=== PATIENT | female | born 2000 | race Caucasian/White ===

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

== ENCOUNTER 2019-11-22 11:52 | Inpatient (IN) ==
[2019-11-22] MEDS ORDERED: OXYTOCIN 30 UNITS/500 ML BAG IV PRN ×2 (12:39→16:52)
--- NOTE | 2019-11-22 12:43 | Obstetrical Progress Note ---
Date of Service November 22, 2019 Subjective Admit Note 18 F P0000 at 39.1 weeks admitted in active labor. GBS is negative. Covid is negative. Cervix 6-7/90/-1/vertex/intact. FHT Cat 1. EFW 7-8 lbs. Will admit in labor and anticipate normal delivery. Results & Data ([facility]) Vital Signs (Past 12 Hours) Vital Signs Temp Pulse Resp BP 11/22/19 12:26 79 139/89 11/22/19 12:10 74 135/94 11/22/19 12:02 36.1 C L 69 20 136/93 11/22/19 11:55 69 136/93 11/22/19 11:53 36.1 C L 20
[2019-11-22 12:54] LABS: Hematocrit (blood only) 32.2 % (37-47); Hemoglobin 9.9 g/dL (12.0-16.0); Mean Corpuscular Hemoglobin 25.6 pg (25-34); Mean Corpuscular Volume 83.4 fL (80-100); Mean Platelet Volume 10.6 fL (7.4-10.4); Platelet Count 245 K/uL (130-400); RDW Coefficient of Variation 16.4 % (11.5-14.5); RDW Standard Deviation 49.4 fL (36.4-46.3); Red Blood Count 3.86 M/uL (4.2-5.4); White Blood Count 17.66 K/uL (4.8-10.8)
[2019-11-22 12:55] LABS: Mean Corpuscular Hgb Conc 30.7 g/dL (32-36)
[2019-11-22] MEDS: LACTATED RINGER'S 1,000 ML IV PRN ×2 (13:00→14:44)
[2019-11-22] MEDS ORDERED: BUTORPHANOL TARTRATE 1 MG/ML VIAL IV PRN (13:11)
--- NOTE | 2019-11-22 15:27 | Obstetrical Progress Note ---
Date of Service November 22, 2019 Assessment & Plan Admission and Anticipated Discharge Date Admission Date: November 22, 2019 Physical Exam Genitourinary: OB Exam Abdomen: + vertex Manual OB Exam: + cervical dilation 10 cm, + cervical effacement 100%, + station -1 and + amniotic fluid (AROM with Amni-hook) clear OB Exam Monitor Tracing: + external FHT monitor used and + external uterine monitor used Results & Data ([facility]) Vital Signs (Past 12 Hours) Vital Signs Temp Pulse Resp BP Pulse Ox 11/22/19 15:20 76 100 11/22/19 15:13 85 100 11/22/19 15:11 71 157/92 H 11/22/19 15:08 77 99 11/22/19 15:03 66 99 11/22/19 14:58 86 163/101 H 99 11/22/19 14:53 95 H 100 11/22/19 14:48 79 99 11/22/19 14:46 74 119/72 11/22/19 14:43 83 100 11/22/19 14:38 88 99 11/22/19 14:27 79 99 11/22/19 14:25 77 129/82 11/22/19 14:22 80 98 11/22/19 14:17 68 100 11/22/19 14:12 81 100 11/22/19 14:11 78 136/88 11/22/19 14:07 77 100 11/22/19 14:02 80 98 11/22/19 13:57 75 100 11/22/19 13:55 76 114/69 11/22/19 13:52 81 98 11/22/19 13:47 79 97 11/22/19 13:42 79 134/85 97 11/22/19 13:37 84 97 11/22/19 13:32 72 98 11/22/19 13:28 74 141/97 H 11/22/19 13:27 83 100 11/22/19 12:26 79 139/89 11/22/19 12:10 74 135/94 11/22/19 12:02 36.1 C L 69 20 136/93 11/22/19 11:55 69 136/93 11/22/19 11:53 36.1 C L 20
[2019-11-22 16:21] LABS: Amphetamines+Metham, Urine Neg (Neg); Barbiturates, Urine Neg (Neg); Benzodiazepine, Urine Neg (Neg); Cocaine, Urine Neg (Neg); MDMA (Ecstacy), Urine Neg (Neg); Methadone, Urine Neg (Neg); Opiate, Urine Neg (Neg); Phencyclidine, Urine Neg (Neg)
--- NOTE | 2019-11-22 16:41 | Delivery Summary ---
Vaginal Delivery Summary Date of Service November 22, 2019 Vaginal Delivery Summary Delivery Note live female over intact perineum with delayed cord clamping and Apgars 7/9 weight pending. Cord blood obtained followed by spontaneous delivery of intact placenta, No tears. EBL 200 ml. Final sponge and instrument count are correct. Mom and baby stable.
[2019-11-22] MEDS ORDERED: IBUPROFEN 600 MG TAB PO ONE (16:42)
[2019-11-22] MEDS ORDERED: BENZOCAINE 20% AER SPR 82.5 GM CAN EXT PRN (16:52)
[2019-11-22] MEDS ORDERED: bisacodyL 10 MG SUPP PR PRN (16:52)
[2019-11-22] MEDS ORDERED: DIPHTHERIA/TETANUS/PERTUSSIS 0.5 ML SYR/VIAL IM ONE (16:52)
[2019-11-22] MEDS ORDERED: IBUPROFEN 600 MG TAB PO PRN (16:52)
[2019-11-22] MEDS ORDERED: ACETAMINOPHEN 325 MG TAB PO PRN (16:52)
[2019-11-22] MEDS ORDERED: SUPERCREAM 0.870% 15 GM JAR EXT PRN (16:52)
[2019-11-22] MEDS ORDERED: HYDROCORTISONE ACETATE 25 MG SUPP PR PRN (16:52)
[2019-11-22] MEDS: DOCUSATE SODIUM 100 MG CAP PO SCH (21:16)
[2019-11-23 06:59] LABS: Hematocrit (blood only) 28.5 % (37-47); Hemoglobin 8.8 g/dL (12.0-16.0); Mean Corpuscular Hemoglobin 25.7 pg (25-34); Mean Corpuscular Hgb Conc 30.9 g/dL (32-36); Mean Corpuscular Volume 83.1 fL (80-100); Mean Platelet Volume 11.3 fL (7.4-10.4); Platelet Count 246 K/uL (130-400); RDW Coefficient of Variation 16.3 % (11.5-14.5); RDW Standard Deviation 49.2 fL (36.4-46.3); Red Blood Count 3.43 M/uL (4.2-5.4); White Blood Count 17.16 K/uL (4.8-10.8)
--- NOTE | 2019-11-23 07:36 | Obstetrical Progress Note ---
Date of Service November 23, 2019 Assessment & Plan Admission and Anticipated Discharge Date Admission Date: November 22, 2019 Subjective Patient is seen and examined. She feels well, no complaints. Ambulating without dizziness Voiding without difficulty Tolerating regular diet with out N&V Bleeding is minimal No fever/ chills/ CP/ SOB/ N&V/ Leg pain Breast feeding without problems Vital Signs Temp Pulse Pulse Pulse Resp BP BP 11/23/19 07:30 36.6 C 92 H 18 121/80 11/23/19 04:26 37.1 C 73 18 11/23/19 00:11 36.8 C 80 18 11/22/19 19:45 36.8 C 111 H 18 110/73 BP Pulse Ox 11/23/19 07:30 97 11/23/19 04:26 135/71 11/23/19 00:11 101/71 11/22/19 19:45 Lab Results 11/22/19 11/22/19 11/23/19 Range/Units 12:44 Unknown 06:32 WBC 17.66 H 17.16 H (4.8-10.8) K/uL RBC 3.86 L 3.43 L (4.2-5.4) M/uL Hgb 9.9 L 8.8 L (12.0-16.0) g/dL Hct 32.2 L 28.5 L (37-47) % MCV 83.4 83.1 (80-100) fL MCH 25.6 25.7 (25-34) pg MCHC 30.7 L 30.9 L (32-36) g/dL RDW Std Deviation 49.4 H 49.2 H (36.4-46.3) fL RDW Coeff of Zeina 16.4 H 16.3 H (11.5-14.5) % Plt Count 245 246 (130-400) K/uL MPV 10.6 H 11.3 H (7.4-10.4) fL Urine Opiates Screen Neg (Neg) Ur Methadone, Qual Neg (Neg) Urine Barbiturates Neg (Neg) Ur Phencyclidine (PCP) Neg (Neg) U Amphetamin/Meth Scrn Neg (Neg) MDMA (Ecstasy) Screen Neg (Neg) U Benzodiazepines Scrn Neg (Neg) Ur Cocaine Metabolite Neg (Neg) U Marijuana (THC) Screen Neg (Neg) PE: General: Alert, orientedx3, NAD Abd: soft, NT, fundus firm, below Umbilicus Perineum intact, Lochia rubra minimal Ext; NT, no edema AP: 18 yo s/p , ppd# 1 VSS Afebrile doing well Anemic asymptomatic, start iron bid Continue routine care All questions were answered D/C home tomorrow Results & Data ([facility]) Vital Signs (Past 12 Hours) Vital Signs Temp Pulse Pulse Pulse Resp BP BP 11/23/19 07:30 36.6 C 92 H 18 121/80 11/23/19 04:26 37.1 C 73 18 11/23/19 00:11 36.8 C 80 18 11/22/19 19:45 36.8 C 111 H 18 110/73 BP Pulse Ox 11/23/19 07:30 97 11/23/19 04:26 135/71 11/23/19 00:11 101/71 11/22/19 19:45
[2019-11-23] MEDS ORDERED: FERROUS SULFATE 325 MG TAB PO SCH ×2 (08:00→09:00)
[2019-11-23] MEDS: FERROUS SULFATE 325 MG TAB PO SCH ×2 (08:08→20:10)
[2019-11-23] MEDS: PRENATAL VITAMIN 1 TAB PO SCH (08:09)
[2019-11-23] MEDS: DOCUSATE SODIUM 100 MG CAP PO SCH ×2 (08:09→20:10)
[2019-11-23] MEDS ORDERED: NON-FORMULARY MEDICATION (Prenat.Vits,Cal,Min-Iron-Folic 1 TAB) PO SCH (09:00)
[2019-11-23] MEDS ORDERED: bisacodyL 5 MG TABEC PO SCH (20:00)
[2019-11-24 06:53] LABS: Basophils # (auto) 0.03 K/uL (0-0.2); Basophils % (auto) 0.2 %; Eosinophils # (auto) 0.16 K/uL (0-0.5); Eosinophils % (auto) 1.2 %; Hematocrit (blood only) 28.7 % (37-47); Immature Granulocytes # (auto) 0.08 K/uL (0.00-0.02); Immature Granulocytes % (auto) 0.6 %; Lymphocytes % (auto) 14.7 %; Mean Corpuscular Hemoglobin 25.6 pg (25-34); Mean Corpuscular Hgb Conc 31.4 g/dL (32-36); Mean Corpuscular Volume 81.5 fL (80-100); Mean Platelet Volume 10.6 fL (7.4-10.4); Monocytes # (auto) 1.03 K/uL (0.11-0.59); Monocytes % (auto) 7.9 %; Neutrophils # (auto) 9.76 K/uL (1.4-6.5); Neutrophils % (auto) 75.4 %; Platelet Count 247 K/uL (130-400); RDW Coefficient of Variation 16.5 % (11.5-14.5); RDW Standard Deviation 48.8 fL (36.4-46.3); Red Blood Count 3.52 M/uL (4.2-5.4); White Blood Count 12.96 K/uL (4.8-10.8)
[2019-11-24] MEDS: DOCUSATE SODIUM 100 MG CAP PO SCH (08:44)
[2019-11-24] MEDS: PRENATAL VITAMIN 1 TAB PO SCH (08:44)
[2019-11-24] MEDS: FERROUS SULFATE 325 MG TAB PO SCH (08:45)
--- NOTE | 2019-11-24 13:10 | Obstetrical Progress Note ---
Date of Service November 24, 2019 Assessment & Plan Admission and Anticipated Discharge Date Admission Date: November 22, 2019 Subjective PPD#2 stable passing gas tolerating diet Physical Exam Constitutional: WD/WN, vitals as above comfortable fundus firm no edema for d/c Results & Data ([facility]) Vital Signs (Past 12 Hours) Vital Signs Temp Pulse Resp BP Pulse Ox 11/24/19 10:26 36.7 C 89 18 115/70 99 11/24/19 08:15 36.7 C 89 18 115/70 99 Laboratory Results Laboratory Results - last 72 hr 11/22/19 11/22/19 11/23/19 12:44 Unknown 06:32 WBC 17.66 H 17.16 H RBC 3.86 L 3.43 L Hgb 9.9 L 8.8 L Hct 32.2 L 28.5 L MCV 83.4 83.1 MCH 25.6 25.7 MCHC 30.7 L 30.9 L RDW Std Deviation 49.4 H 49.2 H RDW Coeff of Zeina 16.4 H 16.3 H Plt Count 245 246 MPV 10.6 H 11.3 H Immature Gran % (Auto) Neut % (Auto) Lymph % (Auto) [place] % (Auto) Eos % (Auto) Baso % (Auto) Neut # (Auto) Lymph # (Auto) [place] # (Auto) Eos # (Auto) Baso # (Auto) Immature Gran # (Auto) Urine Opiates Screen Neg Ur Methadone, Qual Neg Urine Barbiturates Neg Ur Phencyclidine (PCP) Neg U Amphetamin/Meth Scrn Neg MDMA (Ecstasy) Screen Neg U Benzodiazepines Scrn Neg Ur Cocaine Metabolite Neg U Marijuana (THC) Screen Neg 11/24/19 06:09 WBC 12.96 H RBC 3.52 L Hgb 9.0 L Hct 28.7 L MCV 81.5 MCH 25.6 MCHC 31.4 L RDW Std Deviation 48.8 H RDW Coeff of Zeina 16.5 H Plt Count 247 MPV 10.6 H Immature Gran % (Auto) 0.6 Neut % (Auto) 75.4 Lymph % (Auto) 14.7 [place] % (Auto) 7.9 Eos % (Auto) 1.2 Baso % (Auto) 0.2 Neut # (Auto) 9.76 H Lymph # (Auto) 1.90 [place] # (Auto) 1.03 H Eos # (Auto) 0.16 Baso # (Auto) 0.03 Immature Gran # (Auto) 0.08 H Urine Opiates Screen Ur Methadone, Qual Urine Barbiturates Ur Phencyclidine (PCP) U Amphetamin/Meth Scrn MDMA (Ecstasy) Screen U Benzodiazepines Scrn Ur Cocaine Metabolite U Marijuana (THC) Screen
== END 2019-11-24 13:45 | disposition home or self-care (01) | DRG 807 ==
LOC: OPB 11:52 → 4S1 11:53 → 4S2 19:48